=== PATIENT | female | born 1990 | race Caucasian/White ===

== ENCOUNTER 2022-03-08 12:09 | Outpatient (CLI) | payer BC ==
[2022-03-08 13:32] LABS: BHCG - Serum Negative (NEGATIVE); Pregs Control Background? CLEAR/WHITE (CLR/WHITE); Pregs Control Bar Appear? YES (CONTROL BAR)
== END 2022-03-08 12:10 | disposition home or self-care (01) ==
LOC: LABBT 12:09
PROVIDERS: ATTEND Otolaryngology Plastic Surgery within the Head & Neck
DX: Z01.812 Encounter for preprocedural laboratory examination (principal); J00 Acute nasopharyngitis [common cold]; J35.3 Hypertrophy of tonsils with hypertrophy of adenoids; R13.10 Dysphagia, unspecified; R09.81 Nasal congestion; R09.82 Postnasal drip; R06.83 Snoring; Z20.822 Contact with and (suspected) exposure to COVID-19
CPT/HCPCS: 84703; 85014; U0003; U0005

== ENCOUNTER 2022-03-15 11:56 | Outpatient (CLI) | payer BC | END 2022-03-15 11:57 | disposition home or self-care (01) | LOC: LABBT 11:56 | PROVIDERS: ATTEND Otolaryngology Plastic Surgery within the Head & Neck | DX: Z01.812 Encounter for preprocedural laboratory examination (principal); J35.01 Chronic tonsillitis; R06.83 Snoring; R13.10 Dysphagia, unspecified; Z20.822 Contact with and (suspected) exposure to COVID-19; J35.3 Hypertrophy of tonsils with hypertrophy of adenoids; R09.81 Nasal congestion; J00 Acute nasopharyngitis [common cold]; R09.82 Postnasal drip | CPT/HCPCS: 87811 ==

== ENCOUNTER 2022-03-20 07:18 | Day surgery (SDC) | payer BC ==
[2022-03-11 14:42] VITALS: BMI 32.5
[2022-03-20] MEDS ORDERED: Midazolam HCl 2 mg/2 ml Vial ONE (09:19)
[2022-03-20] MEDS ORDERED: fentaNYL Citrate/PF 100 MCG/2 ML SYRINGE ONE (09:19)
[2022-03-20] MEDS ORDERED: methylPREDNISolone Acetate 40 mg/ml Vial ONE (09:45)
[2022-03-20] MEDS ORDERED: Ferric Subsulfate (ASTRINGYN) 8 GM VIAL ONE (09:45)
[2022-03-20] MEDS ORDERED: Fentanyl 100 MCG/2 ML VIAL ONE ×2 (10:50→12:00)
[2022-03-20] MEDS ORDERED: Hydrocodone-Acetamin 15 ML UDCUP ONE (13:53)
== END 2022-03-20 14:42 | disposition home or self-care (01) ==
LOC: SDC 07:18
PROVIDERS: ATTEND Otolaryngology Plastic Surgery within the Head & Neck
PROC: 0CTQXZZ Resection of Adenoids, External Approach (ICD-10-PCS; principal; 2022-03-20)
PROC: 0CTPXZZ Resection of Tonsils, External Approach (ICD-10-PCS; principal; 2022-03-20)
DX: J35.03 Chronic tonsillitis and adenoiditis (principal); K21.9 Gastro-esophageal reflux disease without esophagitis; Z79.899 Other long term (current) drug therapy; Z88.2 Allergy status to sulfonamides
CPT/HCPCS: 88304; J2250; J2920; J3010

== ENCOUNTER 2023-01-29 13:08 | Outpatient (CLI) | payer BC | END 2023-01-29 13:09 | disposition home or self-care (01) | LOC: BICRAD 13:08 | PROVIDERS: ATTEND Family Medicine Sports Medicine | DX: R07.9 Chest pain, unspecified (principal) | CPT/HCPCS: 71046 ==